=== PATIENT | female | born 1970 | race Hispanic/Latino ===

== ENCOUNTER 2017-04-16 11:25 | Emergency (ER) | payer BC | END 2017-04-16 13:00 | disposition home or self-care (01) | LOC: ERS 11:25 | DX: B37.2 Candidiasis of skin and nail (principal); I10 Essential (primary) hypertension; E78.5 Hyperlipidemia, unspecified; E10.9 Type 1 diabetes mellitus without complications; F17.210 Nicotine dependence, cigarettes, uncomplicated; Z79.82 Long term (current) use of aspirin; Z79.899 Other long term (current) drug therapy | CPT/HCPCS: 99282 ==

== ENCOUNTER 2017-06-09 06:04 | Emergency (ER) | payer BC ==
[2017-06-09] MEDS ORDERED: Dexamethasone 4 MG TAB ONE (07:20)
--- NOTE | 2017-06-09 08:02 | RAD ---
SINGLE VIEW CHEST: Date: 06/09/17 COMPARISON: None. HISTORY: Productive cough with green sputum. FINDINGS: Single view of the chest shows a normal sized cardiomediastinal silhouette. There is no evidence of c onsolidation, mass, or pleural effusion. The bones are unremarkable. IMPRESSION: No evidence of acute cardiopulmonary disease. POS: [facility]
== END 2017-06-09 07:25 | disposition home or self-care (01) ==
LOC: ERS 06:04
DX: J02.9 Acute pharyngitis, unspecified (principal); E10.9 Type 1 diabetes mellitus without complications; E78.5 Hyperlipidemia, unspecified; I10 Essential (primary) hypertension; F17.210 Nicotine dependence, cigarettes, uncomplicated; Z79.82 Long term (current) use of aspirin; Z79.899 Other long term (current) drug therapy
CPT/HCPCS: 71010; J8540

== ENCOUNTER 2017-08-18 16:13 | Outpatient (CLI) | payer BC ==
--- NOTE | 2017-08-18 16:32 | RAD ---
PA AND LATERAL CHEST: Indication: Cough, fever. Comparison: 06-09-17 FINDINGS: Lungs are clear. Cardiomediastinal silhouette is normal. No acute osseous abnormality is evident. IMPRESSION: No acute cardiopulmonary abnormality. POS: [facility]
== END 2017-08-18 16:14 | disposition home or self-care (01) ==
LOC: RAD-FRANK 16:13
PROVIDERS: ATTEND Nurse Practitioner Family
DX: R05 Cough (principal); M54.9 Dorsalgia, unspecified; R68.89 Other general symptoms and signs; R50.9 Fever, unspecified; E10.29 Type 1 diabetes mellitus with other diabetic kidney complication
CPT/HCPCS: 71046

== ENCOUNTER 2017-08-31 09:11 | Emergency (ER) | payer BC | END 2017-08-31 10:23 | disposition home or self-care (01) | LOC: ERS 09:11 | DX: N61.1 Abscess of the breast and nipple (principal); E10.9 Type 1 diabetes mellitus without complications; I10 Essential (primary) hypertension; F17.210 Nicotine dependence, cigarettes, uncomplicated; E78.5 Hyperlipidemia, unspecified | CPT/HCPCS: 10061 ==

== ENCOUNTER 2017-09-08 09:28 | Outpatient (CLI) | payer BC | END 2017-09-08 09:29 | disposition home or self-care (01) | LOC: BICMAMMO 09:28 | PROVIDERS: ATTEND Nurse Practitioner Family | DX: N61.1 Abscess of the breast and nipple (principal); N64.4 Mastodynia; N63.20 Unspecified lump in the left breast, unspecified quadrant; N63.10 Unspecified lump in the right breast, unspecified quadrant | CPT/HCPCS: 77066; G0279 ==

== ENCOUNTER 2018-05-20 20:16 | Observation (INO) | payer BC ==
[~2018-05-20 20:16] MED LIST: ISOVUE-370 76%-LOCM 1 ML ONE
[2018-05-20 20:34] LABS: #Eosinphils 0.2 thou/uL (0.0-0.7); #Lymphocytes 3.2 thou/uL (1.20-3.40); #Monocytes 0.5 thou/uL (0.11-0.59); #Neutrophils 4.5 thou/uL (1.40-6.50); %Basophils 0.6 % (0.0-1.0); %Eosinophils 1.9 % (0.0-10.0); %Lymphocytes 38.5 % (21.0-51.0); %Monocytes 5.6 % (0.0-10.0); %Neutrophils 53.5 % (42.0-75.0); Hemoglobin 14.2 g/dL (12.0-16.0); Mean Corpuscular HGB CONC 31.7 g/dL (32.0-36.0); Mean Corpuscular Volume 85.2 fL (78.0-98.0); Mean Platelet Volume 9.3 fL (7.4-10.4); Platelet Count 225 thou/uL (130-400); RBC Distribution Width 12.3 % (11.5-14.5); Red Blood Cell (RBC) Count 5.25 mill/uL (4.20-5.40); White Blood Cell (WBC) Count 8.4 thou/uL (4.8-10.8)
--- NOTE | 2018-05-20 20:52 | RAD ---
PORTABLE CHEST: 05/20/18 HISTORY: Chest pain. Lungs appear clear. No infiltrate or vascular congestion. Heart and mediastinum are unremarkable. IMPRESSION: No acute abnormality. POS: [facility]
[2018-05-20 20:57] LABS: ALT (SGPT) 13 U/L (8-55); AST (SGOT) 17 U/L (5-34); Albumin 4.3 g/dL (3.5-5.0); Alkaline Phosphatase 89 U/L (40-150); Anion Gap 14 mmol/L (10-20); BUN (Urea Nitrogen) 12 mg/dL (7.0-18.7); Bilirubin, Total 0.7 mg/dL (0.2-1.2); CK (CPK) 101 U/L (29-168); Calc. Creatinine Clearance 0 mL/min (70-130); Calcium 9.7 mg/dL (7.8-10.44); Carbon Dioxide 24 mmol/L (22-29); Chloride 103 mmol/L (98-107); Estimated GFR-MDRD 74; Globulin 4.2 g/dL (2.4-3.5); Potassium 3.4 mmol/L (3.5-5.1); Protein, Total 8.5 g/dL (6.0-8.3); Sodium 138 mmol/L (136-145)
[2018-05-20 21:02] LABS: CKMB 1.1 ng/mL (0-6.6); Troponin I Less than 0.010 ng/mL (< 0.028)
[2018-05-20 21:04] LABS: Glucose 58 mg/dL (70-105)
[2018-05-20] MEDS ORDERED: Nitroglycerin 2% Ointment 1 INCH/1 GM Packet ONE (21:13)
--- NOTE | 2018-05-20 22:45 | CT ---
CTA CHEST: 05/20/18 Multiple axial tomograms obtained through chest following pulmonary angio protocol with multiplanar r econstruction and 3D postprocessing. INDICATIONS: Dyspnea. Chest pain. Pulmonary arteries show adequate opacification. There is no evidence of pulmonary embolus identified. The lung stanley are clear. There is no evidence of infiltrate or effusion. Mediastinum unremarkable. Upper abdomen unremarkable. The thoracic aorta is unremarkable with no evidence of dissection. IMPRESSION: 1. No evidence of pulmonary embolus. 2. No acute lung process. POS: [facility]
[2018-05-20 23:53] LABS: Troponin I Less than 0.010 ng/mL (< 0.028)
[2018-05-21 00:09] VITALS: BMI 35.0
[2018-05-21 02:53] LABS: Troponin I Less than 0.010 ng/mL (< 0.028)
[2018-05-21 08:21] LABS: #Eosinphils 0.2 thou/uL (0.0-0.7); #Lymphocytes 2.3 thou/uL (1.20-3.40); #Monocytes 0.4 thou/uL (0.11-0.59); %Basophils 0.8 % (0.0-1.0); %Eosinophils 2.8 % (0.0-10.0); %Lymphocytes 38.7 % (21.0-51.0); %Monocytes 6.4 % (0.0-10.0); %Neutrophils 51.3 % (42.0-75.0); Hemoglobin 12.6 g/dL (12.0-16.0); Mean Corpuscular HGB CONC 32.9 g/dL (32.0-36.0); Mean Corpuscular Hemoglobin 28.2 pg (27.0-31.0); Mean Corpuscular Volume 85.8 fL (78.0-98.0); Mean Platelet Volume 9.8 fL (7.4-10.4); Platelet Count 175 thou/uL (130-400); RBC Distribution Width 12.3 % (11.5-14.5); Red Blood Cell (RBC) Count 4.47 mill/uL (4.20-5.40); White Blood Cell (WBC) Count 5.9 thou/uL (4.8-10.8)
[2018-05-21 08:43] LABS: ALT (SGPT) 9 U/L (8-55); AST (SGOT) 13 U/L (5-34); Albumin 3.5 g/dL (3.5-5.0); Alkaline Phosphatase 68 U/L (40-150); Anion Gap 11 mmol/L (10-20); BUN (Urea Nitrogen) 11 mg/dL (7.0-18.7); Bilirubin, Total 0.9 mg/dL (0.2-1.2); Calc. Creatinine Clearance 155 mL/min (70-130); Calcium 8.6 mg/dL (7.8-10.44); Carbon Dioxide 24 mmol/L (22-29); Cardiac Risk 4.3 (Less than 4.5); Chloride 106 mmol/L (98-107); Cholesterol 169 mg/dl (< 200 Desired); Estimated GFR-MDRD 84; Globulin 3.2 g/dL (2.4-3.5); Glucose 127 mg/dL (70-105); HDL Cholesterol 39 mg/dL (>60 Neg Risk); LDL Cholesterol, Calculated 90 mg/dL; Potassium 3.7 mmol/L (3.5-5.1); Protein, Total 6.7 g/dL (6.0-8.3); Sodium 137 mmol/L (136-145); Triglycerides 199 mg/dL (Less than 150)
[2018-05-21] MEDS ORDERED: Aspirin 325 MG TAB PO SCH (09:00)
[2018-05-21 11:35] VITALS: BP 134/72; TEMP 97.8
--- NOTE | 2018-05-21 14:59 | CON ---
DATE OF CONSULTATION: 05/21/2018 REASON FOR CONSULTATION: Chest pain. HISTORY OF PRESENT ILLNESS: Ms. Worley is a very pleasant 47-year-old female who comes to the hospital for chest pain. She had symptoms suggestive of reflux. She usually gets these exact sa ut symptoms which she describes as substernal burning. She usually is able to make it go away by dri nking water, drinking milk or taking her reflux medications; however, at this time it would go away a nd it stayed there for about the whole hour, so she got worse to come in for evaluation. In the ER, she was given an aspirin. Her pain improved suddenly and has not come back since. She is ruled out with negative troponins completely undetectable. She denies any change in her diet. No other issues for now. She feels much better now. PAST MEDICAL HISTORY: 1. Type 1 diabetes. She has been on insulin for the last 22 years. 2. Hyperlipidemia. 3. Hypertension. PAST SURGICAL HISTORY: 1. Ectopic , had surgery for this. 2. Right breast cyst removal. 3. Hysterectomy due to the ectopic . SOCIAL HISTORY: No alcohol or drugs. She admits to smoking about a cigarette every day, every other day. FAMILY HISTORY: Father with CABG x3 in his 60s. OUTPATIENT MEDICATIONS: Include; 1. Humalog. 2. Lisinopril 5 mg a day. 3. Crestor 10 mg at bedtime. 4. Vitamin D. 5. Aspirin 81 a day. ALLERGIES: No known drug allergies. REVIEW OF SYSTEMS: A 12-point review of systems was done and is all negative unless stated in the hi story of present illness. She does not exercise. PHYSICAL EXAMINATION: VITAL SIGNS: Temperature 97.8, pulse 70, respiration rate 16, satting 97% on room air, blood pressur e 134/72. GENERAL: Awake, alert, oriented x3, in no distress. HEENT: Normocephalic, atraumatic. NECK: Supple. LUNGS: Clear. CARDIOVASCULAR: S1, S2, no S3, S4, no murmurs. ABDOMEN: Soft, positive bowel sounds. EXTREMITIES: Trace edema. SKIN: Warm and dry. LABORATORY WORK: Reviewed. CBC was completely unremarkable. D-dimer was high, but they did do a CT per PE protocol in the ER which showed no evidence of pulmonary embolus. Chemistry was unremarkable except for glucose of 127. Troponin was completely undetectable x3. Triglycerides were 199, choles terol total 169, LDL of 90 and HDL of 39. TSH was normal. EKG was reviewed, no ischemic changes. CT of the chest was reviewed, no evidence of pulmonary embolism. Otherwise, no acute lung process. No mention on coronary anatomy and on my evaluation of the CT scan, I do not see any significant eleazar nary calcifications. ASSESSMENT AND PLAN: Chest pain, atypical, could be related to reflux. At this point, I would recom mend she be further risk stratified with a stress test and an echocardiogram; however, this can be do ne as an outpatient. In talking with Ms. Worley she would like to go home today to celebrate Thanks giving with her family. She is feeling much better and come back as an outpatient and do all this. This can certainly be arranged for her. We will contact her early next week to try to set her up for both an echo and a stress test. 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 She will find a way to take time off to get this done. Thank you for letting us participate in the care of your patient. We will follow up as an outpatient . We will sign off for now. Please call with any questions.
--- NOTE | 2018-05-21 15:33 | SS ---
DATE OF ADMISSION: 05/21/2018 DATE OF DISCHARGE: 05/21/2018 CHIEF COMPLAINT: Chest pain. HOSPITAL COURSE: Patient is a pleasant 47-year-old female who presented to the emergency room for peres bsternal chest pain for one hour. Reports that her left hand was numb when she woke up. Also report a history of acid reflux. Reports that the sensation she had that brought her to the emergency room was similar in nature. Does report a history of type 1 diabetes, hypertension, hyperlipidemia. Sewell s report that she smokes. Does have some family history of heart disease. In the emergency room, alan griffith was found to be tachycardic and hypertensive. She was given 1 inch of nitro paste, aspirin and lainey e fluids. The patient said she has felt better after those medications. The patient had 3 troponins which were all negative. Based on risk factors and presentation, patient was admitted to [facility] for chest pain, rule out stratification. The patient stated that she felt better this mor [place] and wished to have a stress test and an echocardiogram on an outpatient basis. Dr. Fernandes was c ontacted. He went to see the patient and agreed to schedule the patient for the stress test and echo in his clinic as an outpatient. The patient's vital signs remained stable, denied any complaints on discharge and patient was discharged to home. ALLERGIES: Patient has no known drug allergies. MEDICATIONS: Patient takes the following medications at home; Humalog 60 units subcu twice a day, li sinopril 5 mg every morning, Crestor 20 mg daily, vitamin D2 takes 2000 units once a day. PAST MEDICAL HISTORY: The patient has a history of type 1 diabetes insulin-dependent, hyperlipidemia , high cholesterol and hypertension. PAST SURGICAL HISTORY: Includes surgery for an ectopic , hysterectomy, cyst removed from ri t breast. PSYCHIATRIC HISTORY: Includes anxiety. SOCIAL HISTORY: Denies alcohol use, denies drug use. Does smoke. Reports she smokes a pack a month . FAMILY HISTORY: She has a paternal history for cardiac disease. Reports her dad had CABG x3 vessels . PROCEDURES DONE: The patient had a CTA of the chest which showed no evidence of pulmonary embolus. No acute lung process. The patient also had a chest x-ray that showed no acute abnormalities. LABORATORY DATA: Sodium 137, potassium 3.7, chloride 106, carbon dioxide 24, gap is 11, BUN is 11, c reatinine 0.74, estimated GFR is 84, glucose 127, calcium 8.6, bilirubin 0.9, AST 13, ALT 9, alkaline phosphatase was 68. Troponins x3 were less than 0.1. Albumin is 3.5, globulin 3.2, triglycerides 1 99, cholesterol 169, LDL 90 and HDL 39. TSH was 1.31. IMAGING DATA: Patient had an echo and EKG, sinus tachycardia, beat is 103, no ectopics. Interpretat ion was a normal EKG. REVIEW OF SYSTEMS: CONSTITUTIONAL: The patient denied chills, fatigue, fever, weakness. EYES: Den ies any eye pain, photophobia, vision changes. ENT: Denied any sinus pain, sore throat, ear pain. CARDIOVASCULAR: Did report some chest pain. Denied any diaphoresis. Denies dyspnea on exertion. R ESPIRATORY: Denies any cough. Denies any shortness of breath. GASTROINTESTINAL: Denies abdominal pain. Denies nausea, vomiting, diarrhea. GENITOURINARY: Female. Denies any dysuria, frequency, he maturia. MUSCULOSKELETAL: Denies any back pain, deformity, injury, trauma. SKIN: Denies any skin changes or rash. NEUROLOGIC: Denies any confusion, dizziness, focal weakness. Patient reports that she has been having some numbness and tingling in her hands bilaterally for the last month. PSYCHIA TRIC: Denies any HI or SI ideation. OBJECTIVE: VITAL SIGNS: Temperature 98.4, pulse is 75, respirations 20, blood pressure 116/59. HEENT: Atraumatic, normocephalic. Eyes: Eyelids are normal to inspection. Pupils are equally roun d and reactive to light. Conjunctivae normal. Denies any photophobia. ENT: Mucous membranes are m oist. Mouth exam is normal. NECK: No JVD. Normal range of motion. RESPIRATORY: Chest, breath sounds are clear bilaterally. No respiratory distress. CARDIOVASCULAR: S1, S2, no murmurs heard. ABDOMEN: Female Nontender. Bowel sounds are heard. BACK: Normal inspection. No CVA tenderness. EXTREMITIES: Upper extremity inspection is normal. Normal range of motion. Strength is normal. Se nsation intact bilaterally. Radial pulse is present bilaterally. Lower extremity inspection normal. Normal range of motion. Motor strength equal bilaterally. Sensation intact. No edema is noted. NEUROLOGIC: Patient is alert and oriented x3. No focal sensory or motor deficits. SKIN: Normal, dry and color. No rash. PSYCHIATRIC: The patient is alert and oriented to person, place and time. DISCHARGE DIAGNOSES: 1. Chest pain. 2. Diabetes type 1. 3. Hyperlipidemia. The patient's condition on discharge is stable. The patient will be discharged home. The patient is to follow up with her PCP, Aracely Sheridan within 1 week. Follow up with Dr. Fernandes's office next week for stress test and echo. Smoking cessation counseling performed.
== END 2018-05-21 12:48 | disposition home or self-care (01) ==
LOC: ERS 20:16 → 2SW 21:30
PROVIDERS: ADMIT Internal Medicine; ATTEND Internal Medicine
DX: R07.89 Other chest pain (principal); E10.9 Type 1 diabetes mellitus without complications; E78.5 Hyperlipidemia, unspecified; F17.210 Nicotine dependence, cigarettes, uncomplicated; E78.00 Pure hypercholesterolemia, unspecified; F41.9 Anxiety disorder, unspecified; I10 Essential (primary) hypertension; Z79.82 Long term (current) use of aspirin; Z79.899 Other long term (current) drug therapy
CPT/HCPCS: 36415; 36416; 71045; 71275; 80053; 80061; 82550; 82553; 84443; 84484; 85025; 85379; 93005; 96360; G0378

== ENCOUNTER 2018-06-04 05:49 | Emergency (ER) | payer BC ==
--- NOTE | 2018-06-04 07:48 | RAD ---
TWO VIEWS OF THE CHEST: DATE: 06/04/2018. COMPARISON: 08/18/2017. HISTORY: Cough. Sinus congestion. FINDINGS: There is no pneumothorax or pleural fluid and no focal consolidation or alveolar edema. Heart and me diastinal contours are unremarkable. IMPRESSION: No acute findings. POS: [facility]
== END 2018-06-04 07:00 | disposition home or self-care (01) ==
LOC: ERS 05:49
DX: R05 Cough (principal); E10.9 Type 1 diabetes mellitus without complications; E78.5 Hyperlipidemia, unspecified; I10 Essential (primary) hypertension; F41.9 Anxiety disorder, unspecified; Z87.891 Personal history of nicotine dependence; Z79.899 Other long term (current) drug therapy; Z79.82 Long term (current) use of aspirin
CPT/HCPCS: 71046

== ENCOUNTER 2018-07-05 08:20 | Emergency (ER) | payer BC | END 2018-07-05 08:44 | disposition home or self-care (01) | LOC: ERS 08:20 | DX: J06.9 Acute upper respiratory infection, unspecified (principal); E10.9 Type 1 diabetes mellitus without complications; E78.5 Hyperlipidemia, unspecified; I10 Essential (primary) hypertension; F41.9 Anxiety disorder, unspecified; Z87.891 Personal history of nicotine dependence | CPT/HCPCS: 99283 ==

== ENCOUNTER 2019-03-16 23:40 | Emergency (ER) | payer BC ==
[2019-03-17 00:12] LABS: #Eosinphils 0.1 thou/uL (0.0-0.7); #Lymphocytes 3.7 thou/uL (1.20-3.40); #Monocytes 0.5 thou/uL (0.11-0.59); #Neutrophils 4.6 thou/uL (1.40-6.50); %Basophils 0.3 % (0.0-1.0); %Lymphocytes 41.8 % (21.0-51.0); %Monocytes 5.6 % (0.0-10.0); %Neutrophils 51.3 % (42.0-75.0); Hemoglobin 12.9 g/dL (12.0-16.0); Mean Corpuscular HGB CONC 34.2 g/dL (32.0-36.0); Mean Corpuscular Hemoglobin 28.7 pg (27.0-31.0); Mean Corpuscular Volume 83.7 fL (78.0-98.0); Mean Platelet Volume 9.3 fL (7.4-10.4); Platelet Count 191 thou/uL (130-400); Red Blood Cell (RBC) Count 4.49 mill/uL (4.20-5.40); White Blood Cell (WBC) Count 8.9 thou/uL (4.8-10.8)
[2019-03-17 00:33] LABS: ALT (SGPT) 13 U/L (8-55); AST (SGOT) 13 U/L (5-34); Albumin 3.8 g/dL (3.5-5.0); Alkaline Phosphatase 87 U/L (40-150); Anion Gap 13 mmol/L (10-20); BUN (Urea Nitrogen) 20 mg/dL (7.0-18.7); Bilirubin, Total 0.4 mg/dL (0.2-1.2); Calc. Creatinine Clearance 0 mL/min (70-130); Calcium 8.6 mg/dL (7.8-10.44); Carbon Dioxide 23 mmol/L (22-29); Chloride 104 mmol/L (98-107); Estimated GFR-MDRD 58; Globulin 2.9 g/dL (2.4-3.5); Glucose 406 mg/dL (70-105); Potassium 3.6 mmol/L (3.5-5.1); Protein, Total 6.7 g/dL (6.0-8.3); Sodium 136 mmol/L (136-145)
[2019-03-17 00:44] LABS: Bilirubin Negative (Negative); Blood, Urine Negative (Negative); Clarity Clear (Clear); Glucose, Urine (Dipstick) Greater than 1000 mg/dL (Negative); Leukocyte Negative Leu/uL (Negative); Nitrite Negative (Negative); Protein, Urine (Dipstick) Negative (Neg-Trace); Urobilinogen Normal mg/dL (Less than 2)
[2019-03-17 00:53] LABS: Pregnancy Test - Urine (BHCG) Negative (Negative); Pregu Control Background? CLEAR/WHITE (CLR/WHITE); Pregu Control Bar Appear? YES (CONTROL BAR); Specific Gravity 1.026 (1.002-1.036)
--- NOTE | 2019-03-17 07:27 | RAD ---
CHEST 1 VIEW: Date: 03/16/19 INDICATION: Emergency examination. History of diabetes with dizziness and nausea. COMPARISON: Prior exam dated 08/05/17. FINDINGS: Lungs are clear. Heart size is normal. No acute osseous abnormality is evident. IMPRESSION: No acute cardiopulmonary abnormality. POS: [facility]
--- NOTE | 2019-03-20 12:19 | EKG ---
Test Reason : Blood Pressure : / mmHG Vent. Rate : 085 BPM Atrial Rate : 085 BPM P-R Int : 158 ms QRS Dur : 072 ms QT Int : 376 ms P-R-T Axes : 036 019 019 degrees QTc Int : 447 ms Normal sinus rhythm Normal ECG Confirmed by LIZZY TAY M.D. ([id number]), photo editor IMANI ALFARO ([id number]) on 03/20/2019 12:19:16 PM Referred By: Confirmed By:LIZZY TAY M.D.
== END 2019-03-17 01:36 | disposition home or self-care (01) ==
LOC: ERS 23:40
DX: E10.65 Type 1 diabetes mellitus with hyperglycemia (principal); E78.5 Hyperlipidemia, unspecified; E78.00 Pure hypercholesterolemia, unspecified; I10 Essential (primary) hypertension; Z87.891 Personal history of nicotine dependence; Z79.899 Other long term (current) drug therapy
CPT/HCPCS: 36415; 36416; 71045; 80053; 81003; 81025; 85025; 87086; 93005; 96360

== ENCOUNTER 2019-04-26 11:20 | Emergency (ER) | payer BC ==
--- NOTE | 2019-04-26 11:35 | CT ---
Head CT without contrast 04/26/2019: COMPARISON: 04/23/2016 HISTORY: Left-sided weakness TECHNIQUE: Axial CT imaging at 5 mm intervals from vertex through skull base without contrast FINDINGS: Imaged paranasal sinuses and mastoid air cells are well aerated. No displaced calvarial fra cture. No intracranial hemorrhage, midline shift, mass effect, or ventricular enlargement. IMPRESSION: No intracranial hemorrhage. Results called to Dr. Acosta at 11:30 AM 04/26/2019.
[2019-04-26 11:48] LABS: #Basophils 0.1 thou/uL (0.0-0.2); #Eosinphils 0.1 thou/uL (0.0-0.7); #Lymphocytes 3.1 thou/uL (1.20-3.40); #Monocytes 0.3 thou/uL (0.11-0.59); %Basophils 1.1 % (0.0-1.0); %Eosinophils 1.7 % (0.0-10.0); %Monocytes 3.8 % (0.0-10.0); %Neutrophils 52.5 % (42.0-75.0); Hemoglobin 13.7 g/dL (12.0-16.0); Mean Corpuscular HGB CONC 32.3 g/dL (32.0-36.0); Mean Corpuscular Hemoglobin 27.6 pg (27.0-31.0); Mean Corpuscular Volume 85.4 fL (78.0-98.0); Mean Platelet Volume 9.8 fL (7.4-10.4); Platelet Count 200 thou/uL (130-400); RBC Distribution Width 12.4 % (11.5-14.5); Red Blood Cell (RBC) Count 4.95 mill/uL (4.20-5.40); White Blood Cell (WBC) Count 7.5 thou/uL (4.8-10.8)
[2019-04-26 11:54] LABS: PTT 28.2 SEC (22.9-36.1); Prothrombin Time 13.5 SEC (12.0-14.7)
--- NOTE | 2019-04-26 12:01 | CT ---
CT angiogram head CT angiogram neck: 04/18/2019 HISTORY: Left-sided weakness, stroke alert TECHNIQUE: Axial CT imaging at 1.25 mm intervals from vertex through lung apices with IV contrast usi ng CT angiogram protocol with coronal and sagittal 3-D reformatted imaging FINDINGS: Visualized lung apices are unremarkable. The retroantral fat and the parapharyngeal fat appears clear bilaterally. The parotid and submandibular glands, the level of the tonsillar pillars, the epiglottic and preepigl ottic fat, the hyoid bone, the thyroid cartilage, cricoid cartilage, the thyroid gland, and the level of the glottis appear grossly unremarkable. No lymphadenopathy is appreciated within the neck. The origin of the innominate artery, bilateral common carotid arteries, and bilateral subclavian kirsty mahamed appears unremarkable. The origin of bilateral vertebral arteries appears patent. The left vertebral artery is dominant. No hemodynamically significant stenosis or occlusion is appreciated inv olving the vertebral artery on either side. On the basis of NASCET criteria, no hemodynamically significant stenosis is seen involving the common carotid artery or internal carotid artery on either side. The basilar artery and the branches of the basilar artery appear patent with no hemodynamically signi ficant stenosis, vascular occlusion, or saccular aneurysm seen involving the posterior circulation. The A1 segment and the M1 segment is patent bilaterally. The ICA bifurcation and the MCA bifurcation appears unremarkable bilaterally. Distal ROBERT and MCA branches appear within normal limits. No saccular aneurysm, high-grade stenosis, or vascular occlusion is seen involving the anterior circulat ion on either side. No acute osseous abnormality is evident. IMPRESSION: Unremarkable CT angiogram of the head and neck. Dr. Acosta made aware at 11:55 AM 04/26/2019.
[2019-04-26 12:02] LABS: ALT (SGPT) 15 U/L (8-55); AST (SGOT) 16 U/L (5-34); Albumin 4.3 g/dL (3.5-5.0); Alkaline Phosphatase 81 U/L (40-110); Anion Gap 11 mmol/L (10-20); BUN (Urea Nitrogen) 15 mg/dL (7.0-18.7); Bilirubin, Total 1.4 mg/dL (0.2-1.2); Calc. Creatinine Clearance 0 mL/min (70-130); Calcium 9.4 mg/dL (7.8-10.44); Carbon Dioxide 24 mmol/L (22-29); Chloride 104 mmol/L (98-107); Estimated GFR-MDRD 75; Globulin 3.2 g/dL (2.4-3.5); Glucose 209 mg/dL (70-105); Protein, Total 7.5 g/dL (6.0-8.3); Sodium 135 mmol/L (136-145)
[2019-04-26] MEDS ORDERED: ISOVUE-370 76%-LOCM 1 ML ONE (12:22)
== END 2019-04-26 14:15 | disposition home or self-care (01) ==
LOC: ERS 11:20
DX: R20.2 Paresthesia of skin (principal); E10.9 Type 1 diabetes mellitus without complications; E78.5 Hyperlipidemia, unspecified; E78.00 Pure hypercholesterolemia, unspecified; I10 Essential (primary) hypertension; F41.9 Anxiety disorder, unspecified; F32.9 Major depressive disorder, single episode, unspecified; Z87.891 Personal history of nicotine dependence; Z79.899 Other long term (current) drug therapy
CPT/HCPCS: 36416; 70450; 70496; 70498; 80053; 82550; 84484; 85025; 85610; 85730; 93005; Q9966

== ENCOUNTER 2019-06-27 10:55 | Emergency (ER) | payer BC ==
[2019-06-27] MEDS ORDERED: Famotidine 20 MG TAB ONE (11:27)
[2019-06-27] MEDS ORDERED: predniSONE 20 MG TAB ONE (11:27)
== END 2019-06-27 11:43 | disposition home or self-care (01) ==
LOC: ERS 10:55
DX: R21 Rash and other nonspecific skin eruption (principal); T36.8X5A Adverse effect of other systemic antibiotics, initial encounter; E10.9 Type 1 diabetes mellitus without complications; E78.5 Hyperlipidemia, unspecified; E78.00 Pure hypercholesterolemia, unspecified; I10 Essential (primary) hypertension; F41.9 Anxiety disorder, unspecified; F32.9 Major depressive disorder, single episode, unspecified; Z87.891 Personal history of nicotine dependence
CPT/HCPCS: 99282; J7512

== ENCOUNTER 2020-08-25 14:42 | Outpatient (CLI) | payer BC ==
--- NOTE | 2020-08-25 15:23 | MMO ---
Bilateral MAMMO Bilat Diag [facility]. CLINICAL HISTORY: Patient is 49 years old and is seen for diagnostic exam. The patient has no family history of breast cancer. The patient has no personal history of cancer. VIEWS: The views performed were: bilateral craniocaudal with tomosynthesis; bilateral mediolateral oblique with tomosynthesis; and bilateral mediolateral with tomosynthesis. FILMS COMPARED: The present examination has been compared to prior imaging studies performed at [facility] on 09/08/2017 and 08/25/2020. This study has been interpreted with the assistance of computer-aided detection. MAMMOGRAM FINDINGS: There are scattered fibroglandular densities. There is an oval mass measuring 14 millimeters with circumscribed margins seen in the sub-areolar region of the right breast. There are no suspicious masses, suspicious calcifications, or new areas of architectural distortion. IMPRESSION: THERE IS NO MAMMOGRAPHIC EVIDENCE OF MALIGNANCY. A ROUTINE FOLLOW-UP MAMMOGRAM IN 1 YEAR IS RECOMMENDED. THE RESULTS OF THIS EXAM WERE SENT TO THE PATIENT. ACR BI-RADS Category 2 - Benign finding MAMMOGRAPHY NOTE: 1. A negative mammogram report should not delay a biopsy if a dominant of clinically suspicious mass is present. 2. Approximately 10% to 15% of breast cancers are not detected by mammography. 3. Adenosis and dense breasts may obscure an underlying neoplasm. Reported by: GEORGES DIA MD Electonically Signed: [id number]
--- NOTE | 2020-08-25 15:29 | ULT ---
US Breast Limited Rt: 08/25/2020 12:00 AM CLINICAL INDICATION: Mass in the subareolar right breast at 9:00. COMPARISON: Mammograms 08/25/2020, 09/08/2017 TECHNIQUE: Multiplanar grayscale and color Doppler images were obtained of the breast. FINDINGS: Well-circumscribed hypoechoic mass at the 9:00 position of the right breast approximately 1 cm from t he nipple. This measures 1.5 cm in greatest dimension and corresponds to the mammographic abnormality. This most likely represents a fibroadenoma. This has remained stable on mammography dati ng back to 2018. IMPRESSION: BI-RADS Category 2-benign findings.
== END 2020-08-25 14:43 | disposition home or self-care (01) ==
LOC: BICMAMMO 14:42
PROVIDERS: ATTEND Nurse Practitioner Family
DX: R92.8 Other abnormal and inconclusive findings on diagnostic imaging of breast (principal)
CPT/HCPCS: 77066; G0279

== ENCOUNTER 2021-03-12 13:06 | Observation (INO) | payer BC ==
[2021-03-12 13:55] LABS: Hemoglobin 15.4 g/dL (12.0-16.0); Mean Corpuscular Volume 85.8 fL (78.0-98.0); Red Blood Cell (RBC) Count 5.31 mill/uL (4.20-5.40)
[2021-03-12 13:56] LABS: #Basophils 0.1 thou/uL (0.0-0.2); #Eosinphils 0.2 thou/uL (0.0-0.7); #Lymphocytes 2.6 thou/uL (1.20-3.40); #Monocytes 0.4 thou/uL (0.11-0.59); #Neutrophils 3.8 thou/uL (1.40-6.50); %Basophils 1.2 % (0.0-1.0); %Eosinophils 2.4 % (0.0-10.0); %Lymphocytes 37.5 % (21.0-51.0); %Monocytes 5.5 % (0.0-10.0); %Neutrophils 53.4 % (42.0-75.0); Mean Corpuscular HGB CONC 33.8 g/dL (32.0-36.0); Mean Platelet Volume 9.4 fL (7.4-10.4); Platelet Count 202 thou/uL (130-400); RBC Distribution Width 12.2 % (11.5-14.5)
[2021-03-12 14:24] LABS: ALT (SGPT) 17 U/L (8-55); AST (SGOT) 16 U/L (5-34); Albumin 4.2 g/dL (3.5-5.0); Alkaline Phosphatase 87 U/L (40-110); Anion Gap 16 mmol/L (10-20); BUN (Urea Nitrogen) 16 mg/dL (9.8-20.1); Calc. Creatinine Clearance 0 mL/min (70-130); Carbon Dioxide 21 mmol/L (22-29); Chloride 102 mmol/L (98-107); Globulin 3.4 g/dL (2.4-3.5); Glucose 194 mg/dL (70-105); Potassium 3.8 mmol/L (3.5-5.1); Protein, Total 7.6 g/dL (6.0-8.3); Sodium 135 mmol/L (136-145)
[2021-03-12] MEDS ORDERED: Ondansetron PF 4 MG/2 ML Vial IVP PRN (20:30)
[2021-03-12] MEDS ORDERED: Acetaminophen 325 MG TAB PO PRN (20:30)
[2021-03-12] MEDS ORDERED: Ondansetron ODT 4 MG TAB SL PRN (20:30)
[2021-03-12 20:36] VITALS: BMI 33.7
[2021-03-12 21:05] LABS: Troponin I Less than 0.010 ng/mL (< 0.028)
[2021-03-13 00:16] LABS: Troponin I Less than 0.010 ng/mL (< 0.028)
[2021-03-13] MEDS ORDERED: Nitroglycerin 0.4 MG TAB (25 Tab Bottle) SL PRN (01:48)
[2021-03-13] MEDS ORDERED: Morphine 2 MG/ML VIAL SLOW IVP PRN (03:59)
[2021-03-13 04:42] LABS: #Basophils 0.1 thou/uL (0.0-0.2); #Eosinphils 0.2 thou/uL (0.0-0.7); #Lymphocytes 3.4 thou/uL (1.20-3.40); #Monocytes 0.5 thou/uL (0.11-0.59); #Neutrophils 3.5 thou/uL (1.40-6.50); %Basophils 1.2 % (0.0-1.0); %Lymphocytes 43.7 % (21.0-51.0); %Monocytes 6.4 % (0.0-10.0); %Neutrophils 45.7 % (42.0-75.0); Hemoglobin 14.9 g/dL (12.0-16.0); Mean Corpuscular HGB CONC 32.2 g/dL (32.0-36.0); Mean Corpuscular Hemoglobin 27.7 pg (27.0-31.0); Mean Platelet Volume 9.3 fL (7.4-10.4); Platelet Count 194 thou/uL (130-400); RBC Distribution Width 12.1 % (11.5-14.5); Red Blood Cell (RBC) Count 5.37 mill/uL (4.20-5.40); White Blood Cell (WBC) Count 7.7 thou/uL (4.8-10.8)
[2021-03-13 04:53] LABS: Anion Gap 13 mmol/L (10-20); BUN (Urea Nitrogen) 16 mg/dL (9.8-20.1); Calc. Creatinine Clearance 130 mL/min (70-130); Calcium 9.2 mg/dL (7.8-10.44); Carbon Dioxide 24 mmol/L (22-29); Cardiac Risk 3.6 (Less than 4.5); Chloride 102 mmol/L (98-107); Cholesterol 146 mg/dl (< 200 Desired); Glucose 156 mg/dL (70-105); HDL Cholesterol 41 mg/dL (>60 Neg Risk); LDL Cholesterol, Calculated 67 mg/dL; Sodium 135 mmol/L (136-145); Triglycerides 190 mg/dL (Less than 150)
[2021-03-13] MEDS ORDERED: Dextrose 50% Abboject 50 ML SYRINGE SLOW IVP PRN (07:32)
[2021-03-13] MEDS ORDERED: HumaLOG 300 UNITS/3 ML VIAL SC PRN (07:32)
[2021-03-13] MEDS ORDERED: Dextrose 5% in Water 1,000 ML IV PRN (07:32)
[2021-03-13 08:04] LABS: SARS-CoV-2 PCR by NAA Not Detected (NotDetected)
[2021-03-13] MEDS ORDERED: Empagliflozin 10 MG TAB PO SCH (09:00)
[2021-03-13] MEDS: Lisinopril 10 MG TAB PO SCH (12:04)
[2021-03-13] MEDS: Empagliflozin 25 MG TAB PO SCH (12:04)
[2021-03-13] MEDS: Aspirin 81 mg Enteric Coated Tablet PO SCH (12:04)
[2021-03-13] MEDS ORDERED: ADENOSINE 60 MG/20 ML VIAL ONE (12:08)
[2021-03-13 12:32] LABS: Glucose 267 mg/dL (70-105)
[2021-03-13 17:43] LABS: Glucose 148 mg/dL (70-105)
[2021-03-13] MEDS ORDERED: Rosuvastatin 20 MG TAB PO SCH (21:00)
[2021-03-13] MEDS ORDERED: Melatonin 3 MG TAB PO PRN ×2 (22:49→23:51)
[2021-03-14 08:20] LABS: Glucose 171 mg/dL (70-105)
[2021-03-14] MEDS: Lisinopril 10 MG TAB PO SCH (09:24)
[2021-03-14] MEDS: Aspirin 81 mg Enteric Coated Tablet PO SCH (09:24)
[2021-03-14] MEDS: Empagliflozin 25 MG TAB PO SCH (09:25)
[2021-03-14 12:20] VITALS: BP 128/76; TEMP 97.7
[2021-03-14 12:36] LABS: Glucose 225 mg/dL (70-105)
== END 2021-03-14 14:35 | disposition home or self-care (01) ==
LOC: ERS 13:06 → 2NO 19:58
PROVIDERS: ADMIT Internal Medicine; ATTEND Family Medicine
DX: R07.89 Other chest pain (principal); E10.9 Type 1 diabetes mellitus without complications; I10 Essential (primary) hypertension; E78.1 Pure hyperglyceridemia; I08.1 Rheumatic disorders of both mitral and tricuspid valves; Z87.891 Personal history of nicotine dependence; Z79.82 Long term (current) use of aspirin; Z79.84 Long term (current) use of oral hypoglycemic drugs; Z79.899 Other long term (current) drug therapy; Z20.822 Contact with and (suspected) exposure to COVID-19
CPT/HCPCS: 36415; 36416; 71045; 78452; 80048; 80053; 80061; 82947; 84443; 84484; 85025; 85379; 93005; 93017; 93306; 94760; A9500; G0378; J0153; J1815; U0003; U0005

== ENCOUNTER 2022-01-18 09:35 | Outpatient (CLI) | payer BC | END 2022-01-18 09:36 | disposition home or self-care (01) | LOC: BICMAMMO 09:35 | PROVIDERS: ATTEND Nurse Practitioner Family | DX: Z12.31 Encounter for screening mammogram for malignant neoplasm of breast (principal); Z80.3 Family history of malignant neoplasm of breast | CPT/HCPCS: 77063; 77067 ==

== ENCOUNTER 2025-06-07 00:54 | Emergency (ER) | payer BC ==
[2025-06-07 01:55] LABS: #Basophils Less than 0.03 10x3/uL (0.0-0.2); #Eosinophils Less than 0.03 10x3/uL (0.0-0.7); #Monocytes 0.45 10x3/uL (0.11-0.59); #Neutrophils 5.46 10x3/uL (1.40-6.50); %Basophils 0.3 % (0.0-1.0); %Eosinophils 0.0 % (0.0-10.0); %Lymphocytes 21.8 % (21.0-51.0); %Monocytes 5.9 % (0.0-10.0); %Neutrophils 71.9 % (42.0-75.0); Hematocrit 40.7 % (36.0-47.0); Hemoglobin 13.5 g/dL (12.0-16.0); Mean Corpuscular Hemoglobin 27.1 pg (27.0-31.0); Mean Corpuscular Volume 81.7 fL (78.0-98.0); Platelet Count 239 10x3/uL (130-400); Red Blood Cell (RBC) Count 4.98 mill/uL (4.20-5.40); White Blood Cell (WBC) Count 7.60 10x3/uL (4.8-10.8)
[2025-06-07 02:11] LABS: ALT (SGPT) 20 U/L (Less than 34); AST (SGOT) 22 U/L (11-34); Albumin 4.1 g/dL (3.1-4.5); Alkaline Phosphatase 88 U/L (40-110); Anion Gap 15 mmol/L (10-20); BUN (Urea Nitrogen) 22 mg/dL (9.8-20.1); Bilirubin, Total 0.5 mg/dL (0.3-1.2); Calc. Creatinine Clearance 0 mL/min (70-130); Calcium 9.2 mg/dL (7.8-10.44); Carbon Dioxide 21 mmol/L (22-29); Chloride 101 mmol/L (98-107); Globulin 3.7 g/dL (2.4-3.5); Glucose 370 mg/dL (70-105); Lipase 37 U/L (8-78); Potassium 3.8 mmol/L (3.5-5.1); Sodium 133 mmol/L (136-145)
[2025-06-07 02:48] LABS: Glucose, Urine (Dipstick) >=1000 mg/dL (Negative); Leukocyte Negative (Negative); Protein, Urine (Dipstick) Negative (Neg-Trace); Specific Gravity, Urine Less/Equal 1.005 (1.005-1.030)
[2025-06-07 03:02] LABS: Bacteria/HPF None Seen HPF (None Seen); CAUTI Indications for Culture Dysuria,urgency,freq; RBC/HPF None Seen HPF (0-3); WBC/HPF 0-3 HPF (0-3)
[2025-06-07 03:05] LABS: Urine Culture Reflex No No
== END 2025-06-07 04:32 | disposition home or self-care (01) ==
LOC: ERS 00:54
DX: E11.65 Type 2 diabetes mellitus with hyperglycemia (principal); I10 Essential (primary) hypertension; Z87.891 Personal history of nicotine dependence
CPT/HCPCS: 36416; 80053; 81001; 82010; 83690; 85025; 93005; 96360